=== PATIENT | female | born 1975 | race Caucasian/White ===

== ENCOUNTER 2017-02-26 21:21 | Inpatient (IN) | payer OTHER ==
[~2017-02-26] VITALS: Ht 165.1 cm; Wt 118.4 kg
--- NOTE | ~2017-02-26 | ST ---
[place], [place] EXERCISE STRESS TEST REPORT NAME: GERALDINE LAYNE [facility] #: [id number] UNIT #: [id number] ROOM: 510 DOCTOR: FREYA NI,NUBIA BIRTHDATE: [birth year] DOS: 02/27/2017 EXERCISE STRESS TEST REASON FOR TEST: Evaluation of chest pain. PHYSICAL EXAMINATION NECK: Supple. LUNGS: Clear anteriorly. HEART: Regular rhythm. PROTOCOL: Jim protocol. Total stress time 3 minutes. Maximum heart rate of 155, which 85% of target heart rate. Peak blood pressure 140/84, adequate response. Total mets 4.7 mets. SYMPTOMS: The patient had chest pain at rest about 3 on a scale of 10, which slightly became worse to 4 or 5 during her treadmill stress test. The patient noted to have some shortness of breath. EKG: Resting EKG shows sinus rhythm. Stress EKG showed no ischemia, no arrhythmias. CONCLUSION: Clinically, the patient had chest pain at rest, which was slightly worse on treadmill and EKG showed no ischemic changes. POST-STRESS COMPLICATIONS: None. NUBIA PILLAI MD CM:STRESS:EXERCISE STRESS TEST REPORT [id number] NUBIA PILLAI MD
--- NOTE | ~2017-02-26 | CON ---
[place], [place] REPORT OF CONSULTATION NAME: [id number] UNIT #: [id number] ROOM: 510 DOCTOR: NUBIA PILLAI MD BIRTHDATE: [birth year] DATE: 02/27/17 REASON FOR CONSULTATION: Chest pain. HISTORY OF PRESENT ILLNESS: The patient is a 41-year-old patient who was presented to the Emergency Room with chest pain. She described it as a sharp midsternal pain as well as left-sided pain mostly at rest. No associated nausea, diaphoresis, or shortness of breath. The pain radiated to her left clavicle area as well as left ankle area. Occasionally, this associated some shortness of breath. Her pain gets worse at rest, but not with any activity or movement. She tried ibuprofen at home without help. She came to the Emergency Room and was admitted to the hospital and Cardiology consult for further testing. She has history of pericardial cyst, which was drained about 5 ago. The patient denies any fever or chills. No cough, no hemoptysis, no edema, no orthopnea. No blurred vision or double vision. She did have occasional headaches. No hematuria, dysuria. No joint tenderness or swelling. REVIEW OF SYSTEMS: Review of the 8 systems negative except as mentioned above. PAST MEDICAL HISTORY: 1. Hypertension. 2. History of pericardial cyst. 3. Thyroid nodules. 4. Acid reflux. 5. Peptic ulcer disease. 6. Depression. 7. Bipolar disorder. PAST SURGICAL HISTORY: 1. History of pericardial cyst drainage. 2. . 3. Cholecystectomy. 4. Hysterectomy. SOCIAL HISTORY: The patient does smoke 1 pack a day and also uses occasional marijuana and also drinks occasionally. FAMILY HISTORY: Father had leukemia. Coronary artery disease with premature heart attacks. Currently living. Mother has hypertension, lung disease. She at age of 56 from colon cancer. ALLERGIES: The patient is allergic to BACTRIM. HOME MEDICATIONS: Reviewed. PHYSICAL EXAMINATION: VITAL SIGNS: Blood pressure 120/80, pulse 59, respiratory rate 18. GENERAL: Alert, comfortable, in no acute distress. HEENT: Pupils are round, equal. No jaundice. NECK: Supple, no distended neck veins, no carotid bruits. CHEST: Symmetrical, nontender. [place], [place] REPORT OF CONSULTATION NAME: GERALDINE LAYNE UNIT #: [id number] ROOM: 510 DOCTOR: NUBIA PILLAI MD BIRTHDATE: [birth year] LUNGS: Few scattered rhonchi, but good air entry bilaterally. HEART: Regular rhythm, no S3, no palpable thrills. ABDOMEN: Benign, nontender, positive bowel sounds. EXTREMITIES: Showed no edema. Distal pulses are palpable. SKIN: Warm and dry. No cyanosis, no clubbing. NEUROLOGIC: The patient is alert, oriented. No focal neurologic deficit. RECTAL: Deferred. GENITOURINARY: Deferred. Rhythm strip, labs, medications reviewed. EKG shows sinus rhythm with no acute ST-T changes. IMPRESSION: 1. Chest pain, atypical, myocardial infarction ruled out. 2. History of pericardial cyst, status post drainage. 3. Obesity. 4. Acid reflux. 5. Anxiety and depression. RECOMMENDATIONS: Exercise nuclear stress test today for evaluation of chest pains. Continue current medication. I would consider repeating her 2D echo for followup of her pericardial cyst. Risk factor modification discussed. Further recommendations based on her above testing and her symptoms. NUBIA PILLAI MD CM:CONSTR:REPORT OF CONSULTATION 30 03/03/17 1425 TAYLER MACARIO MIS.R
[~2017-02-26 21:21] MED LIST: ABILIFY15 MG PO; ADDERAL PO; ADDERALL10 MG PO; AMOXICILLIN500 M3 PO; ATARAX,VISTARIL50 MG PO; BACTRIM DS 8001 TA1 PO; BUSPAR15 MG PO; CARAFATE1 G1 PO; CELEBREX100 MG PO; CELEBREX50 MG PO; CIPRO250 MG PO; CLARITIN10 MG PO; COMBIVENT1 ARO IH; DICLOFENAC POTA50 MG PO; DIFLUCAN150 MG PO; EC NAPROSYN500 MG PO; EES400 MG PO; FIORICET 325 MG1 TAB PO; FLAGYL500 MG PO; FLEXERIL10 MG PO; FLEXERIL5 MG PO; FLOVENT 220 M220 MCG INH; HYDROCHLOROTHIA25 M1 PO; HYDROCODONE BIT1 T11 PO; IBU-8800 MG PO; IBU800 M1 PO; IBUPROFEN600 MG PO; LAMICTAL200 MG PO; LOMOTIL 0.025 M1 TAB PO; MEDROL DOSEPAK4 MG PO; MINIPRESS5 M1 PO; MOTRIN800 MG PO; MYLICON, MYLANT80 MG PO; Motrin,Rufen800 MG PO; NAPROSYN500 MG PO; PEPCID20 MG PO; PERCOCET 325 MG1 TA5 PO; PREDNICOT20 MG PO; PREDNISONE20 M1 PO; PRILOSEC OTC20 MG PO; PROMETRIUM100 MG PO; PROTONIX40 MG PO; Percocet 325 MG1 TAB PO; ROBITUSSIN AC 110 ML PO; TOPAMAX2 MG PO; TOPAMAX25 M1 PO; TRAZODONE50 MG PO; VALIUM10 MG PO; VICODIN 5-3001 EACH PO; VICODIN 5/500 505 MG PO; VISTARIL25 M1 PO; Vicodin 5/500 505 MG PO; ZANAFLEX2 M1 PO; ZANTAC150 MG PO; ZOFRAN ODT4 MG PO; ZOFRAN ODT4 MG SL; ZOFRAN8 MG PO; [UNRECOGNIZED DRUG - CODE] SC
[2017-02-26 21:25] VITALS: BP 144/90
[2017-02-26 21:43] LABS: BASO % 0.4 % (0.0-1.0); EOS # 0.2 10*3/uL (0.0-0.4); EOS % 1.9 % (1.0-4.0); HEMATOCRIT 42.4 % (37.0-47.0); HEMOGLOBIN 14.2 g/dl (12.0-16.0); LYMPH # 2.7 10*3/uL (1.3-4.4); MEAN CELL VOLUME 86.4 fl (81.0-99.0); MEAN CORPUSCULAR HGB 28.9 pg (27.0-31.0); MEAN CORPUSCULAR HGB CONC 33.5 g/dl (33.0-37.0); MEAN PLATELET VOLUME 9.8 fl (9.6-12.3); MONO # 0.7 10*3/uL (0.1-1.0); MONO % 8.5 % (3.0-9.0); NEUT # 4.5 10*3/uL (2.3-7.9); NEUT % 55.7 % (47.0-73.0); PLATELET COUNT AUTOMATED 277 10*3/uL (130-400); RED BLOOD COUNT 4.91 10*6/uL (4.10-5.10); RED CELL DISTRI WIDTH 14.1 % (0-14.5); WHITE BLOOD COUNT 8.1 10*3/uL (4.8-10.8)
[2017-02-26 21:51] LABS: INTERNATIONAL NORM RATIO 0.9 (2.0-3.5)
[2017-02-26 22:00] LABS: ALBUMIN 3.6 gm/dl (3.1-4.5); ALKALINE PHOSPHATASE 88 U/L (45-117); BILIRUBIN, TOTAL 0.2 mg/dl (0.2-1.0); BUN 14 mg/dl (7-24); CARBON DIOXIDE 26 mmol/L (21-32); CHLORIDE 107 mmol/L (98-107); EST GLOM FILT AFRICAN AMERICAN > 60 ml/min; GLUCOSE 96 mg/dL (65-99); SGOT/AST 11 IU/L (3-35); SGPT/ALT 18 U/L (12-78); SODIUM 145 mmol/L (136-145); TOTAL PROTEIN 7.1 gm/dL (6.4-8.2)
[2017-02-26 22:03] LABS: TROPONIN I < 0.015 ng/ml (<0.045)
[2017-02-26 22:04] VITALS: BP 142/83
[2017-02-26] MEDS ORDERED: FLONASE ALLERG9.9 ML NAS (22:27)
[2017-02-26] MEDS ORDERED: ZYRTEC10 MG PO (22:29)
[2017-02-26] MEDS ORDERED: ASMANEX TW0.22 MG/AC INH (22:29)
[2017-02-26 22:30] VITALS: BP 150/97
[2017-02-26] MEDS ORDERED: CYCLOBENZAPRINE10 MG PO (22:30)
[2017-02-26] MEDS ORDERED: PROTONIX40 MG PO (22:30)
[2017-02-26] MEDS ORDERED: TRAZODONE100 MG PO (22:31)
[2017-02-26] MEDS ORDERED: LAMICTAL150 MG PO (22:31)
[2017-02-26] MEDS ORDERED: REXULTI3 MG PO (22:31)
[2017-02-26] MEDS ORDERED: MINIPRESS5 M1 PO (22:32)
[2017-02-26] MEDS ORDERED: BUSPAR15 MG PO (22:32)
[2017-02-26] MEDS ORDERED: TOPAMAX25 M3 PO (22:33)
[2017-02-26] MEDS ORDERED: VENTOLIN H0.09 MG/AC INH (22:33)
[2017-02-27] VITALS: BP 138/84
[2017-02-27 00:46] LABS: CKMB < 0.5 ng/ml (0.5-3.6); TROPONIN I < 0.015 ng/ml (<0.045)
[2017-02-27 06:21] LABS: BASO % 0.5 % (0.0-1.0); EOS # 0.2 10*3/uL (0.0-0.4); EOS % 2.6 % (1.0-4.0); HEMATOCRIT 40.5 % (37.0-47.0); HEMOGLOBIN 13.2 g/dl (12.0-16.0); LYMPH # 2.6 10*3/uL (1.3-4.4); MEAN CORPUSCULAR HGB 28.7 pg (27.0-31.0); MEAN CORPUSCULAR HGB CONC 32.6 g/dl (33.0-37.0); MEAN PLATELET VOLUME 10.2 fl (9.6-12.3); MONO # 0.5 10*3/uL (0.1-1.0); MONO % 6.8 % (3.0-9.0); NEUT # 3.3 10*3/uL (2.3-7.9); NEUT % 49.8 % (47.0-73.0); PLATELET COUNT AUTOMATED 269 10*3/uL (130-400); RED CELL DISTRI WIDTH 14.4 % (0-14.5); WHITE BLOOD COUNT 6.6 10*3/uL (4.8-10.8)
[2017-02-27 06:30] LABS: HEMOGLOBIN A1c 5.1 % (4.8-5.6)
[2017-02-27 06:39] LABS: CKMB < 0.5 ng/ml (0.5-3.6); TROPONIN I < 0.015 ng/ml (<0.045)
[2017-02-27 06:41] LABS: BUN 15 mg/dl (7-24); CARBON DIOXIDE 25 mmol/L (21-32); CHOLESTEROL 140 mg/dL (<200); EST GLOM FILT AFRICAN AMERICAN > 60 ml/min; FREE T4 1.19 ng/dl (0.76-1.46); GLUCOSE 86 mg/dL (65-99); HDL CHOLESTEROL 68 mg/dl (40-60); LDL CHOLESTEROL 63 mg/dL (9-159); MAGNESIUM 2.1 mg/dL (1.5-2.1); PHOSPHOROUS 4.4 mg/dL (2.5-4.9); TRIGLYCERIDES 44 mg/dl (<150); VLDL CHOLESTEROL 9 mg/dL (6-40)
[2017-02-27 06:44] LABS: CHLORIDE 108 mmol/L (98-107); POTASSIUM 3.9 mmol/L (3.5-5.1); SODIUM 144 mmol/L (136-145)
[2017-02-27 08:00] VITALS: BP 114/50
[2017-02-27 12:00] VITALS: BP 114/65
[2017-02-27 12:32] LABS: CKMB < 0.5 ng/ml (0.5-3.6); TROPONIN I < 0.015 ng/ml (<0.045)
[2017-02-27 16:00] VITALS: BP 112/62
[2017-02-27 20:40] VITALS: BP 107/47
[2017-02-28] VITALS: BP 97/52
[2017-02-28 08:00] VITALS: BP 130/68
[2017-02-28 12:00] VITALS: BP 110/58
== END 2017-02-28 14:45 | disposition home or self-care (01) | DRG 313 ==
LOC: ED 21:21 → EDHOLD 22:37 → 5E 22:37
PROVIDERS: Emergency Medicine Emergency Medical Services; Internal Medicine
PROC: 4A02XM4 Measurement of Cardiac Total Activity, External Approach (ICD-10-PCS; principal; 2017-02-27)
DX: R07.89 Other chest pain (principal); Z68.41 Body mass index [BMI] 40.0-44.9, adult; I10 Essential (primary) hypertension; E66.01 Morbid (severe) obesity due to excess calories; F31.9 Bipolar disorder, unspecified; K21.9 Gastro-esophageal reflux disease without esophagitis; G25.81 Restless legs syndrome; R06.82 Tachypnea, not elsewhere classified; F17.210 Nicotine dependence, cigarettes, uncomplicated; G43.909 Migraine, unspecified, not intractable, without status migrainosus; Z90.710 Acquired absence of both cervix and uterus; Z90.49 Acquired absence of other specified parts of digestive tract; Z98.891 History of uterine scar from previous surgery; Z82.49 Family history of ischemic heart disease and other diseases of the circulatory system; Z80.0 Family history of malignant neoplasm of digestive organs; Z83.6 Family history of other diseases of the respiratory system; Z79.899 Other long term (current) drug therapy; Z88.2 Allergy status to sulfonamides; Z88.8 Allergy status to other drugs, medicaments and biological substances

== ENCOUNTER 2017-08-15 20:13 | Emergency (ER) | payer OTHER ==
[~2017-08-15] VITALS: Ht 165.1 cm; Wt 136.1 kg
[~2017-08-15 20:13] MED LIST changes: +ASMANEX TW0.22 MG/AC INH; +CYCLOBENZAPRINE10 MG PO; +FLONASE ALLERG9.9 ML NAS; +LAMICTAL150 MG PO; +REXULTI3 MG PO; +TOPAMAX25 M3 PO; +TRAZODONE100 MG PO; +VENTOLIN H0.09 MG/AC INH; +ZYRTEC10 MG PO
[2017-08-15 20:54] VITALS: BP 119/66
[2017-08-15 21:45] LABS: BASO % 0.4 % (0.0-1.0); EOS # 0.3 10*3/uL (0.0-0.4); EOS % 3.5 % (1.0-4.0); HEMATOCRIT 41.5 % (37.0-47.0); HEMOGLOBIN 13.3 g/dl (12.0-16.0); LYMPH # 2.2 10*3/uL (1.3-4.4); LYMPH % 28.9 % (27.0-41.0); MEAN CELL VOLUME 88.5 fl (81.0-99.0); MEAN CORPUSCULAR HGB 28.4 pg (27.0-31.0); MEAN PLATELET VOLUME 9.5 fl (9.6-12.3); MONO # 0.7 10*3/uL (0.1-1.0); NEUT # 4.3 10*3/uL (2.3-7.9); NEUT % 57.9 % (47.0-73.0); PLATELET COUNT AUTOMATED 268 10*3/uL (130-400); RED BLOOD COUNT 4.69 10*6/uL (4.10-5.10); WHITE BLOOD COUNT 7.4 10*3/uL (4.8-10.8)
[2017-08-15 22:00] LABS: ALBUMIN 3.6 gm/dl (3.1-4.5); ALKALINE PHOSPHATASE 114 U/L (45-117); BUN 11 mg/dl (7-24); CHLORIDE 108 mmol/L (98-107); CREATININE 0.96 mg/dL (0.55-1.02); POTASSIUM 3.8 mmol/L (3.5-5.1); SGOT/AST 70 IU/L (3-35); SGPT/ALT 91 U/L (12-78); SODIUM 140 mmol/L (136-145); TOTAL PROTEIN 7.1 gm/dL (6.4-8.2)
[2017-08-15 22:06] LABS: BILIRUBIN NEGATIVE (NEGATIVE); BLOOD NEGATIVE (NEGATIVE); CLARITY CLEAR (CLEAR); COLOR YELLOW (YELLOW); GLUCOSE NEGATIVE (NEGATIVE); KETONE NEGATIVE (NEGATIVE); LEUKO ESTERASE NEGATIVE (NEGATIVE); NITRITE NEGATIVE (NEGATIVE); SPECIFIC GRAVITY <= 1.005 (1.005-1.030)
[2017-08-15 22:16] LABS: BACTERIA TRACE; RBC 0-2 rbc/hpf (0-2); WBC 0-2 wbc/hpf (0-5)
== END 2017-08-15 22:44 | disposition home or self-care (01) ==
LOC: ED 20:13
PROVIDERS: Nurse Practitioner Family
DX: R60.0 Localized edema (principal); R51 Headache; F12.10 Cannabis abuse, uncomplicated; F17.200 Nicotine dependence, unspecified, uncomplicated; J45.909 Unspecified asthma, uncomplicated; Z98.890 Other specified postprocedural states; Z90.49 Acquired absence of other specified parts of digestive tract; Z90.710 Acquired absence of both cervix and uterus; Z88.8 Allergy status to other drugs, medicaments and biological substances; Z88.1 Allergy status to other antibiotic agents; Z79.899 Other long term (current) drug therapy; Z98.51 Tubal ligation status

== ENCOUNTER 2017-10-21 18:28 | Emergency (ER) | payer OTHER ==
[~2017-10-21] VITALS: Wt 90.7 kg
[2017-10-21 18:52] VITALS: BP 112/49
[2017-10-21] MEDS ORDERED: TESSALON PERLE100 MG PO (20:28)
[2017-10-21] MEDS ORDERED: AUGMENTIN 875875 MG PO (20:28)
== END 2017-10-21 20:35 | disposition home or self-care (01) ==
LOC: ED 18:28
DX: J32.9 Chronic sinusitis, unspecified (principal); J20.9 Acute bronchitis, unspecified; F10.10 Alcohol abuse, uncomplicated; F41.9 Anxiety disorder, unspecified; F32.9 Major depressive disorder, single episode, unspecified; K21.9 Gastro-esophageal reflux disease without esophagitis; I10 Essential (primary) hypertension; Z88.2 Allergy status to sulfonamides; Z88.8 Allergy status to other drugs, medicaments and biological substances; Z79.899 Other long term (current) drug therapy; Z90.49 Acquired absence of other specified parts of digestive tract; Z90.710 Acquired absence of both cervix and uterus; Z98.51 Tubal ligation status

== ENCOUNTER 2017-11-06 18:42 | Emergency (ER) | payer OTHER ==
[~2017-11-06] VITALS: Ht 165.1 cm; Wt 97.5 kg
[~2017-11-06 18:42] MED LIST changes: +AUGMENTIN 875875 MG PO; +TESSALON PERLE100 MG PO
[2017-11-06 18:58] VITALS: BP 140/83
[2017-11-06] MEDS ORDERED: CYCLOBENZAPRINE10 MG PO (20:24)
[2017-11-06] MEDS ORDERED: MEDROL DOSEPAK4 MG PO (20:24)
== END 2017-11-06 20:40 | disposition home or self-care (01) ==
LOC: ED 18:42
DX: M54.42 Lumbago with sciatica, left side (principal); F17.200 Nicotine dependence, unspecified, uncomplicated; F12.10 Cannabis abuse, uncomplicated; K21.9 Gastro-esophageal reflux disease without esophagitis; I10 Essential (primary) hypertension; E66.9 Obesity, unspecified; Z98.51 Tubal ligation status; Z98.890 Other specified postprocedural states; Z90.49 Acquired absence of other specified parts of digestive tract; Z79.899 Other long term (current) drug therapy; Z88.1 Allergy status to other antibiotic agents; Z88.8 Allergy status to other drugs, medicaments and biological substances

== ENCOUNTER 2017-12-19 17:16 | Emergency (ER) | payer OTHER ==
[~2017-12-19] VITALS: Wt 117.0 kg
[2017-12-19 17:59] LABS: BASO % 0.4 % (0.0-1.0); EOS # 0.2 10*3/uL (0.0-0.4); EOS % 2.5 % (1.0-4.0); HEMATOCRIT 41.3 % (37.0-47.0); HEMOGLOBIN 13.4 g/dl (12.0-16.0); LYMPH # 2.1 10*3/uL (1.3-4.4); LYMPH % 28.1 % (27.0-41.0); MEAN CELL VOLUME 88.4 fl (81.0-99.0); MEAN CORPUSCULAR HGB 28.7 pg (27.0-31.0); MEAN CORPUSCULAR HGB CONC 32.4 g/dl (33.0-37.0); MEAN PLATELET VOLUME 9.7 fl (9.6-12.3); MONO # 0.5 10*3/uL (0.1-1.0); MONO % 5.9 % (3.0-9.0); NEUT # 4.8 10*3/uL (2.3-7.9); NEUT % 62.8 % (47.0-73.0); PLATELET COUNT AUTOMATED 300 10*3/uL (130-400); RED BLOOD COUNT 4.67 10*6/uL (4.10-5.10); RED CELL DISTRI WIDTH 14.2 % (0-14.5); WHITE BLOOD COUNT 7.6 10*3/uL (4.8-10.8)
[2017-12-19 18:09] LABS: ACT PARTIAL THROMBO TIME 24.7 SECONDS (20.8-31.5); INTERNATIONAL NORM RATIO 0.9 (2.0-3.5)
[2017-12-19 18:17] LABS: ALBUMIN 3.7 gm/dl (3.1-4.5); ALKALINE PHOSPHATASE 100 U/L (45-117); BUN 20 mg/dl (7-24); CHLORIDE 106 mmol/L (98-107); POTASSIUM 4.7 mmol/L (3.5-5.1); SGOT/AST 16 IU/L (3-35); SGPT/ALT 22 U/L (12-78); SODIUM 138 mmol/L (136-145); TOTAL PROTEIN 7.3 gm/dL (6.4-8.2)
[2017-12-19 19:58] VITALS: BP 114/60
== END 2017-12-19 20:14 | disposition short-term general hospital (02) ==
LOC: ED 17:16
PROVIDERS: Nurse Practitioner Family
DX: M54.5 Low back pain (principal); G89.29 Other chronic pain; F17.200 Nicotine dependence, unspecified, uncomplicated; I10 Essential (primary) hypertension; K21.9 Gastro-esophageal reflux disease without esophagitis; Z90.49 Acquired absence of other specified parts of digestive tract; Z90.710 Acquired absence of both cervix and uterus; Z88.2 Allergy status to sulfonamides; Z88.1 Allergy status to other antibiotic agents

== ENCOUNTER → 2017-12-26 | Outpatient (CLI) | payer OTHER | END | disposition home or self-care (01) | LOC: MRI 11:00 | DX: M51.26 Other intervertebral disc displacement, lumbar region (principal); M48.061 Spinal stenosis, lumbar region without neurogenic claudication ==

== ENCOUNTER 2018-05-23 14:18 | Emergency (ER) | payer OTHER ==
[~2018-05-23] VITALS: Ht 165.1 cm; Wt 117.0 kg
[2018-05-23 14:20] VITALS: BP 123/57
[2018-05-23] MEDS ORDERED: DELTASONE20 M1 PO (16:00)
[2018-05-23] MEDS ORDERED: Motrin,Rufen800 MG PO (16:00)
== END 2018-05-23 16:06 | disposition home or self-care (01) ==
LOC: ED 14:18
DX: M54.16 Radiculopathy, lumbar region (principal); F17.200 Nicotine dependence, unspecified, uncomplicated; Z88.1 Allergy status to other antibiotic agents; Z79.899 Other long term (current) drug therapy

== ENCOUNTER 2018-05-29 00:14 | Emergency (ER) | payer OTHER ==
[~2018-05-29] VITALS: Ht 165.1 cm; Wt 113.4 kg
[~2018-05-29 00:14] MED LIST changes: +DELTASONE20 M1 PO
[2018-05-29 00:15] VITALS: BP 155/53
== END 2018-05-29 01:36 | disposition home or self-care (01) ==
LOC: ED 00:14
DX: G89.29 Other chronic pain (principal); M54.16 Radiculopathy, lumbar region; F17.200 Nicotine dependence, unspecified, uncomplicated; F12.10 Cannabis abuse, uncomplicated; Z88.2 Allergy status to sulfonamides; Z79.899 Other long term (current) drug therapy; Z90.49 Acquired absence of other specified parts of digestive tract; Z90.710 Acquired absence of both cervix and uterus; Z98.51 Tubal ligation status

== ENCOUNTER 2018-10-28 11:20 | Inpatient (IN) | payer OTHER ==
[~2018-10-28] VITALS: Ht 165.1 cm; Wt 115.0 kg
--- NOTE | ~2018-10-28 | EKG ---
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
--- NOTE | ~2018-10-28 | EKG ---
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
--- NOTE | ~2018-10-28 | EKG ---
[place], [place] ELECTROCARDIOGRAM REPORT NAME: GERALDINE LAYNE UNIT #: [id number] ROOM: 504 DOCTOR: KIM DRAFT REPORT BIRTHDATE: [birth year] [facility] Test Date: 2018-10-28 Test Time: 17:14:53 Pat Name: GERLADINE LAYNE Department: Room: 504 Gender: F Ehs Specialist: NANDINI : 1975 Requested By: GUERLIEN ADDISON Order Number: [id number] Reading MD: Dg Strong MD Measurements Intervals [place] Rate: 69 P: 51 CA: 149 QRS: 27 QRSD: 80 T: 19 QT: 376 QTc: 403 Interpretive Statements Sinus rhythm No change from earlier ECG this date Electronically Signed On 10-28-2018 18:30:17 PST by Dg Strong MD CM:EKGRPT:ELECTROCARDIOGRAM REPORT 1714 1830 GUERLINE GUTIERREZ DRAFT REPORT GUERLINE ADDISON DO
--- NOTE | ~2018-10-28 | CON ---
[place], [place] REPORT OF CONSULTATION NAME: GERALDINE LAYNE [facility] #: [id number] UNIT #: [id number] ROOM: 504 DOCTOR: CHANTEL NIMARAL BIRTHDATE: [birth year] DOS: 10/28/2018 HISTORY OF PRESENT ILLNESS: The patient is a 43-year-old female apparently who was recently here a week ago. The patient at that time had a CT scan, which had showed a pericardial cyst. She does have a history of pericardial cyst drainage about 8 years ago. The patient had an echocardiogram done a week ago, which showed an excellent ejection fraction. No obvious pericardial cysts were noticed. The patient was readmitted. I was asked for a second opinion. She had some atypical chest pain and complains of some numbness and tingling. No acute EKG changes, suggestion of myocardial injury or infarction. PAST MEDICAL HISTORY: Significant for bronchial asthma, chronic pain, cocaine abuse, dependent edema, gastroesophageal reflux disease, marijuana abuse, thyroid nodule, pericardial cyst. PAST SURGICAL HISTORY: section, cholecystectomy, hysterectomy. SOCIAL HISTORY: As mentioned. FAMILY HISTORY: Positive for coronary artery disease. HOME MEDICATIONS: Include gabapentin, Lasix, multivitamins, oxycodone, prednisone. REVIEW OF SYSTEMS: CONSTITUTIONAL: No fever, no chills. HEENT: No visual disturbances, hearing problems. CARDIOVASCULAR: As per HPI. RESPIRATORY: Denies any shortness of breath. GASTROINTESTINAL: No nausea, no vomiting. GENITOURINARY: No dysuria. PHYSICAL EXAMINATION: VITAL SIGNS: Blood pressure is 104/60. HEENT: Unremarkable. NECK: Supple, no JVD. LUNGS: Diminished breath sounds. HEART: Sounds are regular. No murmur. ABDOMEN: Soft, nontender. NEUROLOGICAL: Stable. LABORATORY DATA: Sodium 141, potassium 3.6, creatinine is 0.9. Liver functions are normal. Troponins have been negative. BNP is normal. Echo reviewed showed an excellent ejection fraction. RECOMMENDATIONS: The patient with atypical chest discomfort, but the ejection fraction is excellent and if continues to have symptoms, can do an outpatient regular treadmill stress test. Pericardial cyst as seen by CT scan but echo did not reveal it, would strongly recommend to get a cardiac MRI as an outpatient. Continue with other medications as ordered and we will follow up and thank you [place], [place] REPORT OF CONSULTATION NAME: GERALDINE LAYNE UNIT #: [id number] ROOM: 504 DOCTOR: CHANTEL NI,MARAL BIRTHDATE: [birth year] for this interesting consultation. MARAL GOLDEN MD CM:CONSTR:REPORT OF CONSULTATION 1644 10/29/18 0357 interface
[~2018-10-28 11:20] MED LIST changes: +AMPHETAMINE SAL15 M1 PO; +FUROSEMIDE20 M1 PO; +GABAPENTIN600 MG PO; +MIRTAZAPINE30 M2 PO; +MULTIVITAMINS1 EAC6 PO; +NICODERM CQ1 EAC2 TD; +PERCOCET 7.5-31 EACH PO; +POTASSIUM CHLO10 ME4 PO; +PREDNISONE10 MG PO; +PROAIR HFA8.5 GM INH; -VENTOLIN H0.09 MG/AC INH; +VITAMIN D5000 UNI1 PO
[2018-10-28 11:22] VITALS: BP 109/64
[2018-10-28 11:41] LABS: BASO % 0.2 % (0.0-1.0); EOS # 0.1 10*3/uL (0.0-0.4); EOS % 0.7 % (1.0-4.0); HEMATOCRIT 44.9 % (37.0-47.0); HEMOGLOBIN 14.4 g/dl (12.0-16.0); LYMPH # 3.6 10*3/uL (1.3-4.4); LYMPH % 23.1 % (27.0-41.0); MEAN CELL VOLUME 90.7 fl (81.0-99.0); MEAN CORPUSCULAR HGB 29.1 pg (27.0-31.0); MEAN CORPUSCULAR HGB CONC 32.1 g/dl (33.0-37.0); MONO # 1.2 10*3/uL (0.1-1.0); MONO % 7.6 % (3.0-9.0); NEUT # 10.4 10*3/uL (2.3-7.9); NEUT % 67.7 % (47.0-73.0); PLATELET COUNT AUTOMATED 285 10*3/uL (130-400); RED BLOOD COUNT 4.95 10*6/uL (4.10-5.10); RED CELL DISTRI WIDTH 13.5 % (0-14.5); WHITE BLOOD COUNT 15.3 10*3/uL (4.8-10.8)
[2018-10-28 11:49] LABS: ACT PARTIAL THROMBO TIME 19.9 SECONDS (20.8-31.5); INTERNATIONAL NORM RATIO 0.9 (2.0-3.5)
[2018-10-28 11:55] VITALS: BP 115/68
[2018-10-28 11:59] LABS: ALBUMIN 3.6 gm/dl (3.1-4.5); ALKALINE PHOSPHATASE 90 U/L (45-117); BUN 23 mg/dl (7-24); CHLORIDE 107 mmol/L (98-107); CREATININE 0.94 mg/dL (0.55-1.02); LIPASE 120 U/L (73-393); POTASSIUM 3.6 mmol/L (3.5-5.1); SGOT/AST 8 IU/L (3-35); SGPT/ALT 32 U/L (12-78); SODIUM 141 mmol/L (136-145); TOTAL PROTEIN 7.2 gm/dL (6.4-8.2)
[2018-10-28 12:03] LABS: BETA-HCG, QUANT < 1.0 mIU/mL (1-3); TROPONIN I < 0.015 ng/ml (<0.045)
[2018-10-28 13:06] VITALS: BP 104/63
[2018-10-28 14:06] VITALS: BP 119/76
[2018-10-28 16:00] VITALS: BP 111/64
[2018-10-28 20:00] VITALS: BP 108/60
[2018-10-29] VITALS: BP 103/53
[2018-10-29 06:36] VITALS: BP 110/64
[2018-10-29 06:36] LABS: BASO % 0.1 % (0.0-1.0); EOS % 0.2 % (1.0-4.0); HEMATOCRIT 41.7 % (37.0-47.0); HEMOGLOBIN 13.6 g/dl (12.0-16.0); LYMPH # 2.1 10*3/uL (1.3-4.4); LYMPH % 20.6 % (27.0-41.0); MEAN CELL VOLUME 89.9 fl (81.0-99.0); MEAN CORPUSCULAR HGB 29.3 pg (27.0-31.0); MEAN CORPUSCULAR HGB CONC 32.6 g/dl (33.0-37.0); MEAN PLATELET VOLUME 10.2 fl (9.6-12.3); MONO # 0.6 10*3/uL (0.1-1.0); MONO % 6.2 % (3.0-9.0); NEUT # 7.4 10*3/uL (2.3-7.9); NEUT % 72.1 % (47.0-73.0); PLATELET COUNT AUTOMATED 286 10*3/uL (130-400); RED BLOOD COUNT 4.64 10*6/uL (4.10-5.10); RED CELL DISTRI WIDTH 13.4 % (0-14.5); WHITE BLOOD COUNT 10.2 10*3/uL (4.8-10.8)
[2018-10-29 06:42] LABS: ACT PARTIAL THROMBO TIME 20.8 SECONDS (20.8-31.5); INTERNATIONAL NORM RATIO 0.9 (2.0-3.5)
[2018-10-29 06:44] LABS: ALKALINE PHOSPHATASE 78 U/L (45-117); BUN 20 mg/dl (7-24); CHLORIDE 106 mmol/L (98-107); CREATININE 0.75 mg/dL (0.55-1.02); POTASSIUM 3.9 mmol/L (3.5-5.1); SGOT/AST 8 IU/L (3-35); SGPT/ALT 27 U/L (12-78); SODIUM 138 mmol/L (136-145); TOTAL PROTEIN 6.5 gm/dL (6.4-8.2)
[2018-10-29 08:00] VITALS: BP 116/60
[2018-10-29 08:15] VITALS: BP 106/56
== END 2018-10-29 11:24 | disposition home or self-care (01) | DRG 206 ==
LOC: ED 11:20 → 5E 12:48 → EDHOLD 12:48 → 5E 13:16
PROVIDERS: Emergency Medicine; Family Medicine
DX: M94.0 Chondrocostal junction syndrome [Tietze] (principal); K21.9 Gastro-esophageal reflux disease without esophagitis; I31.8 Other specified diseases of pericardium; R55 Syncope and collapse; D72.829 Elevated white blood cell count, unspecified; R79.82 Elevated C-reactive protein (CRP); F31.9 Bipolar disorder, unspecified; G25.81 Restless legs syndrome; M51.37 Other intervertebral disc degeneration, lumbosacral region; I10 Essential (primary) hypertension; F12.10 Cannabis abuse, uncomplicated; G89.29 Other chronic pain; M54.32 Sciatica, left side; M54.16 Radiculopathy, lumbar region; E66.01 Morbid (severe) obesity due to excess calories; G47.00 Insomnia, unspecified; E55.9 Vitamin D deficiency, unspecified; J45.909 Unspecified asthma, uncomplicated; F41.1 Generalized anxiety disorder; Z91.09 Other allergy status, other than to drugs and biological substances; Z98.891 History of uterine scar from previous surgery; Z90.49 Acquired absence of other specified parts of digestive tract; Z90.710 Acquired absence of both cervix and uterus; Z82.49 Family history of ischemic heart disease and other diseases of the circulatory system; Z80.6 Family history of leukemia; Z80.0 Family history of malignant neoplasm of digestive organs; Z88.1 Allergy status to other antibiotic agents; Z79.899 Other long term (current) drug therapy

== ENCOUNTER 2018-12-27 21:12 | Emergency (ER) | payer OTHER ==
[~2018-12-27] VITALS: Ht 165.1 cm; Wt 111.1 kg
[2018-12-27 22:59] LABS: BILIRUBIN NEGATIVE (NEGATIVE); BLOOD NEGATIVE (NEGATIVE); CLARITY SL CLOUDY (CLEAR); COLOR YELLOW (YELLOW); GLUCOSE NEGATIVE (NEGATIVE); KETONE NEGATIVE (NEGATIVE); LEUKO ESTERASE NEGATIVE (NEGATIVE); NITRITE NEGATIVE (NEGATIVE); UROBILINOGEN 0.2 E.U./dl (0.2-1.0)
[2018-12-27 23:06] LABS: BACTERIA 3+; EPITHELIAL CELLS 40-45
[2018-12-28 02:48] VITALS: BP 125/61
[2019-05-10] MEDS ORDERED: MAPAP EXTRA ST500 M1 PO (05:59)
[2019-05-10] MEDS ORDERED: ADDERALL15 MG PO (06:00)
[2019-05-10] MEDS ORDERED: ARNUITY ELLIP100 MCG INH (06:02)
[2019-05-10] MEDS ORDERED: ATIVAN1 MG PO (06:04)
[2019-05-10] MEDS ORDERED: URECHOLINE10 MG PO (06:05)
[2019-05-10] MEDS ORDERED: CYMBALTA30 MG PO (06:06)
[2019-05-10] MEDS ORDERED: Lovenox40 MG/0.4 PO (06:10)
[2019-05-10] MEDS ORDERED: LIDODERM1 EACH T (06:10)
[2019-05-10] MEDS ORDERED: MINIPRESS5 MG PO (06:11)
[2019-05-10] MEDS ORDERED: MOBIC7.5 MG PO (06:11)
[2019-05-10] MEDS ORDERED: MIRALAX POWDER17 G1 PO (06:12)
[2019-05-10] MEDS ORDERED: OXYCODONE HYDROC5 MG PO (06:13)
[2019-05-10] MEDS ORDERED: PERIDEX118 ML PO (06:15)
[2019-05-10] MEDS ORDERED: ROBAXIN500 M1 PO (06:17)
[2019-05-10] MEDS ORDERED: SALINE NASAL SP88 ML NAS (06:20)
[2019-05-10] MEDS ORDERED: SENNA LAX8.6 M1 PO (06:21)
[2019-05-10] MEDS ORDERED: GAS RELIEF 8080 MG PO (06:22)
[2019-05-10] MEDS ORDERED: TAMSULOSIN HCL0.4 MG PO (06:23)
[2019-05-10] MEDS ORDERED: VOLTAREN100 GM T (06:24)
[2019-05-10] MEDS ORDERED: MEDROL DOSEPAK4 MG PO (06:53)
== END 2018-12-28 04:59 | disposition short-term general hospital (02) ==
LOC: ED 21:12
PROVIDERS: Emergency Medicine
DX: M62.81 Muscle weakness (generalized) (principal); M54.16 Radiculopathy, lumbar region; R29.898 Other symptoms and signs involving the musculoskeletal system; K21.9 Gastro-esophageal reflux disease without esophagitis; I10 Essential (primary) hypertension; J45.909 Unspecified asthma, uncomplicated; E66.01 Morbid (severe) obesity due to excess calories; Z88.2 Allergy status to sulfonamides; Z79.899 Other long term (current) drug therapy; Z87.891 Personal history of nicotine dependence

== ENCOUNTER 2019-03-05 22:12 | Emergency (ER) | payer OTHER ==
[2019-03-06 00:11] LABS: ALBUMIN 3.9 gm/dl (3.1-4.5); ALKALINE PHOSPHATASE 97 U/L (45-117); BUN 16 mg/dl (7-24); CHLORIDE 108 mmol/L (98-107); CREATININE 0.82 mg/dL (0.55-1.02); POTASSIUM 3.9 mmol/L (3.5-5.1); SGOT/AST 21 IU/L (3-35); SGPT/ALT 32 U/L (12-78); SODIUM 141 mmol/L (136-145); TOTAL PROTEIN 7.7 gm/dL (6.4-8.2)
[2019-03-06 01:30] VITALS: BP 150/92
[2019-03-06 02:21] LABS: BILIRUBIN NEGATIVE (NEGATIVE); BLOOD NEGATIVE (NEGATIVE); CLARITY CLEAR (CLEAR); COLOR YELLOW (YELLOW); GLUCOSE NEGATIVE (NEGATIVE); KETONE NEGATIVE (NEGATIVE); LEUKO ESTERASE NEGATIVE (NEGATIVE); NITRITE NEGATIVE (NEGATIVE); PH 5.5 (5.0-9.0); SPECIFIC GRAVITY 1.025 (1.005-1.030); UROBILINOGEN 0.2 E.U./dl (0.2-1.0)
[2019-03-06 02:29] LABS: RBC 0-2 rbc/hpf (0-2); WBC 0-2 wbc/hpf (0-5)
[2019-03-06 02:30] LABS: URINE AMPHETAMINES > 1000 (1000ng/ml); URINE BARBITURATES < 200 (200ng/ml); URINE BENZODIAZEPINES < 200 (200ng/ml); URINE CANNABINOIDS (THC) > 50 (50ng/ml); URINE COCAINE < 300 (300ng/ml); URINE METHADONE < 300 (300ng/ml); URINE OPIATES > 300 (300ng/ml)
[2019-03-06 02:32] LABS: URINE PHENCYCLIDINE < 25 (25ng/ml)
[2019-05-10] MEDS ORDERED: MAPAP EXTRA ST500 M1 PO (05:59)
[2019-05-10] MEDS ORDERED: ADDERALL15 MG PO (06:00)
[2019-05-10] MEDS ORDERED: ARNUITY ELLIP100 MCG INH (06:02)
[2019-05-10] MEDS ORDERED: ATIVAN1 MG PO (06:04)
[2019-05-10] MEDS ORDERED: URECHOLINE10 MG PO (06:05)
[2019-05-10] MEDS ORDERED: CYMBALTA30 MG PO (06:06)
[2019-05-10] MEDS ORDERED: LIDODERM1 EACH T (06:10)
[2019-05-10] MEDS ORDERED: Lovenox40 MG/0.4 PO (06:10)
[2019-05-10] MEDS ORDERED: MINIPRESS5 MG PO (06:11)
[2019-05-10] MEDS ORDERED: MOBIC7.5 MG PO (06:11)
[2019-05-10] MEDS ORDERED: MIRALAX POWDER17 G1 PO (06:12)
[2019-05-10] MEDS ORDERED: OXYCODONE HYDROC5 MG PO (06:13)
[2019-05-10] MEDS ORDERED: PERIDEX118 ML PO (06:15)
[2019-05-10] MEDS ORDERED: ROBAXIN500 M1 PO (06:17)
[2019-05-10] MEDS ORDERED: SALINE NASAL SP88 ML NAS (06:20)
[2019-05-10] MEDS ORDERED: SENNA LAX8.6 M1 PO (06:21)
[2019-05-10] MEDS ORDERED: GAS RELIEF 8080 MG PO (06:22)
[2019-05-10] MEDS ORDERED: TAMSULOSIN HCL0.4 MG PO (06:23)
[2019-05-10] MEDS ORDERED: VOLTAREN100 GM T (06:24)
[2019-05-10] MEDS ORDERED: MEDROL DOSEPAK4 MG PO (06:53)
== END 2019-03-06 03:55 | disposition home or self-care (01) ==
LOC: ED 22:12
PROVIDERS: Emergency Medicine
DX: M48.061 Spinal stenosis, lumbar region without neurogenic claudication (principal); J45.909 Unspecified asthma, uncomplicated; G89.29 Other chronic pain; F14.10 Cocaine abuse, uncomplicated; K21.9 Gastro-esophageal reflux disease without esophagitis; I10 Essential (primary) hypertension; F12.90 Cannabis use, unspecified, uncomplicated; E66.01 Morbid (severe) obesity due to excess calories; F17.200 Nicotine dependence, unspecified, uncomplicated; Z98.890 Other specified postprocedural states; Z90.49 Acquired absence of other specified parts of digestive tract; Z79.899 Other long term (current) drug therapy; Z88.1 Allergy status to other antibiotic agents; Z88.8 Allergy status to other drugs, medicaments and biological substances

== ENCOUNTER 2019-03-06 12:40 | Emergency (ER) | payer OTHER ==
[~2019-03-06] VITALS: Ht 170.1 cm; Wt 122.5 kg
[2019-03-06 13:34] LABS: BILIRUBIN NEGATIVE (NEGATIVE); BLOOD NEGATIVE (NEGATIVE); CLARITY SL CLOUDY (CLEAR); COLOR YELLOW (YELLOW); GLUCOSE NEGATIVE (NEGATIVE); KETONE NEGATIVE (NEGATIVE); LEUKO ESTERASE NEGATIVE (NEGATIVE); NITRITE NEGATIVE (NEGATIVE); UROBILINOGEN 0.2 E.U./dl (0.2-1.0)
[2019-03-06 13:43] LABS: BACTERIA TRACE
[2019-03-06 16:47] VITALS: BP 105/56
[2019-05-10] MEDS ORDERED: MAPAP EXTRA ST500 M1 PO (05:59)
[2019-05-10] MEDS ORDERED: ADDERALL15 MG PO (06:00)
[2019-05-10] MEDS ORDERED: ARNUITY ELLIP100 MCG INH (06:02)
[2019-05-10] MEDS ORDERED: ATIVAN1 MG PO (06:04)
[2019-05-10] MEDS ORDERED: URECHOLINE10 MG PO (06:05)
[2019-05-10] MEDS ORDERED: CYMBALTA30 MG PO (06:06)
[2019-05-10] MEDS ORDERED: Lovenox40 MG/0.4 PO (06:10)
[2019-05-10] MEDS ORDERED: LIDODERM1 EACH T (06:10)
[2019-05-10] MEDS ORDERED: MOBIC7.5 MG PO (06:11)
[2019-05-10] MEDS ORDERED: MINIPRESS5 MG PO (06:11)
[2019-05-10] MEDS ORDERED: MIRALAX POWDER17 G1 PO (06:12)
[2019-05-10] MEDS ORDERED: OXYCODONE HYDROC5 MG PO (06:13)
[2019-05-10] MEDS ORDERED: PERIDEX118 ML PO (06:15)
[2019-05-10] MEDS ORDERED: ROBAXIN500 M1 PO (06:17)
[2019-05-10] MEDS ORDERED: SALINE NASAL SP88 ML NAS (06:20)
[2019-05-10] MEDS ORDERED: SENNA LAX8.6 M1 PO (06:21)
[2019-05-10] MEDS ORDERED: GAS RELIEF 8080 MG PO (06:22)
[2019-05-10] MEDS ORDERED: TAMSULOSIN HCL0.4 MG PO (06:23)
[2019-05-10] MEDS ORDERED: VOLTAREN100 GM T (06:24)
[2019-05-10] MEDS ORDERED: MEDROL DOSEPAK4 MG PO (06:53)
== END 2019-03-06 18:58 | disposition short-term general hospital (02) ==
LOC: ED 12:40
PROVIDERS: Physician Assistant
DX: M54.42 Lumbago with sciatica, left side (principal); M54.41 Lumbago with sciatica, right side; R30.0 Dysuria; Z88.2 Allergy status to sulfonamides; Z79.899 Other long term (current) drug therapy; Z90.710 Acquired absence of both cervix and uterus; Z90.49 Acquired absence of other specified parts of digestive tract; Z87.891 Personal history of nicotine dependence

== ENCOUNTER 2019-04-12 20:48 | Emergency (ER) | payer OTHER ==
[~2019-04-12] VITALS: Ht 167.6 cm; Wt 95.3 kg
[2019-04-12 22:21] LABS: BILIRUBIN NEGATIVE (NEGATIVE); BLOOD 3+ (NEGATIVE); CLARITY SL CLOUDY (CLEAR); COLOR YELLOW (YELLOW); GLUCOSE NEGATIVE (NEGATIVE); KETONE NEGATIVE (NEGATIVE); LEUKO ESTERASE 2+ (NEGATIVE); NITRITE POSITIVE (NEGATIVE); UROBILINOGEN 0.2 E.U./dl (0.2-1.0)
[2019-04-12 23:27] LABS: RBC 31-40 rbc/hpf (0-2)
[2019-04-12 23:28] LABS: BACTERIA 2+; WBC 21-30 wbc/hpf (0-5)
[2019-04-12 23:49] LABS: BASO % 0.4 % (0.0-1.0); EOS # 0.4 10*3/uL (0.0-0.4); EOS % 4.4 % (1.0-4.0); HEMATOCRIT 38.5 % (37.0-47.0); HEMOGLOBIN 12.2 g/dl (12.0-16.0); LYMPH % 37.7 % (27.0-41.0); MEAN CELL VOLUME 92.5 fl (81.0-99.0); MEAN CORPUSCULAR HGB 29.3 pg (27.0-31.0); MEAN CORPUSCULAR HGB CONC 31.7 g/dl (33.0-37.0); MEAN PLATELET VOLUME 9.9 fl (9.6-12.3); MONO # 0.6 10*3/uL (0.1-1.0); NEUT % 49.4 % (47.0-73.0); PLATELET COUNT AUTOMATED 233 10*3/uL (130-400); RED BLOOD COUNT 4.16 10*6/uL (4.10-5.10); RED CELL DISTRI WIDTH 12.9 % (0-14.5)
[2019-04-13 00:05] LABS: ALBUMIN 3.2 gm/dl (3.1-4.5); ALKALINE PHOSPHATASE 83 U/L (45-117); BUN 16 mg/dl (7-24); CHLORIDE 109 mmol/L (98-107); CREATININE 0.83 mg/dL (0.55-1.02); LIPASE 142 U/L (73-393); SGOT/AST 12 IU/L (3-35); SGPT/ALT 20 U/L (12-78); SODIUM 142 mmol/L (136-145); TOTAL PROTEIN 6.5 gm/dL (6.4-8.2)
[2019-04-13 04:58] VITALS: BP 100/50
[2019-05-10] MEDS ORDERED: MAPAP EXTRA ST500 M1 PO (05:59)
[2019-05-10] MEDS ORDERED: ADDERALL15 MG PO (06:00)
[2019-05-10] MEDS ORDERED: ARNUITY ELLIP100 MCG INH (06:02)
[2019-05-10] MEDS ORDERED: ATIVAN1 MG PO (06:04)
[2019-05-10] MEDS ORDERED: URECHOLINE10 MG PO (06:05)
[2019-05-10] MEDS ORDERED: CYMBALTA30 MG PO (06:06)
[2019-05-10] MEDS ORDERED: Lovenox40 MG/0.4 PO (06:10)
[2019-05-10] MEDS ORDERED: LIDODERM1 EACH T (06:10)
[2019-05-10] MEDS ORDERED: MINIPRESS5 MG PO (06:11)
[2019-05-10] MEDS ORDERED: MOBIC7.5 MG PO (06:11)
[2019-05-10] MEDS ORDERED: MIRALAX POWDER17 G1 PO (06:12)
[2019-05-10] MEDS ORDERED: OXYCODONE HYDROC5 MG PO (06:13)
[2019-05-10] MEDS ORDERED: PERIDEX118 ML PO (06:15)
[2019-05-10] MEDS ORDERED: ROBAXIN500 M1 PO (06:17)
[2019-05-10] MEDS ORDERED: SALINE NASAL SP88 ML NAS (06:20)
[2019-05-10] MEDS ORDERED: SENNA LAX8.6 M1 PO (06:21)
[2019-05-10] MEDS ORDERED: GAS RELIEF 8080 MG PO (06:22)
[2019-05-10] MEDS ORDERED: TAMSULOSIN HCL0.4 MG PO (06:23)
[2019-05-10] MEDS ORDERED: VOLTAREN100 GM T (06:24)
[2019-05-10] MEDS ORDERED: MEDROL DOSEPAK4 MG PO (06:53)
[2019-06-28] MEDS ORDERED: MONUROL3 G1 PO (04:28)
== END 2019-04-13 05:42 | disposition home or self-care (01) ==
LOC: ED 20:48
PROVIDERS: Emergency Medicine Emergency Medical Services
DX: R10.30 Lower abdominal pain, unspecified (principal); M54.5 Low back pain; F17.200 Nicotine dependence, unspecified, uncomplicated; J45.909 Unspecified asthma, uncomplicated; G89.29 Other chronic pain; K21.9 Gastro-esophageal reflux disease without esophagitis; E66.01 Morbid (severe) obesity due to excess calories; Z90.49 Acquired absence of other specified parts of digestive tract; Z98.890 Other specified postprocedural states; Z90.710 Acquired absence of both cervix and uterus; Z79.899 Other long term (current) drug therapy; Z88.1 Allergy status to other antibiotic agents; Z88.8 Allergy status to other drugs, medicaments and biological substances

== ENCOUNTER → 2019-04-13 | Outpatient (CLI) | payer OTHER ==
[~2019-04-13] MED LIST changes: +ADDERALL15 MG PO; +ARNUITY ELLIP100 MCG INH; +ATIVAN1 MG PO; +CIPRO500 MG PO; +CYMBALTA30 MG PO; +GAS RELIEF 8080 MG PO; +LIDODERM1 EACH T; +Lovenox40 MG/0.4 PO; +MACROBID100 M1 PO; +MAPAP EXTRA ST500 M1 PO; +MINIPRESS5 MG PO; +MIRALAX POWDER17 G1 PO; +MOBIC7.5 MG PO; +MONUROL3 G1 PO; +OXYCODONE HYDROC5 MG PO; +PERIDEX118 ML PO; +ROBAXIN500 M1 PO; +SALINE NASAL SP88 ML NAS; +SENNA LAX8.6 M1 PO; +TAMSULOSIN HCL0.4 MG PO; +URECHOLINE10 MG PO; +VOLTAREN100 GM T
== END | disposition home or self-care (01) ==
LOC: US 14:59
DX: E04.1 Nontoxic single thyroid nodule (principal)

== ENCOUNTER 2019-07-01 23:15 | Emergency (ER) | payer OTHER ==
[~2019-07-01] VITALS: Ht 165.1 cm; Wt 126.6 kg
--- NOTE | ~2019-07-01 | EKG ---
[place], [place] ELECTROCARDIOGRAM REPORT NAME: GERALDINE LAYNE UNIT #: [id number] ROOM: DOCTOR: EPIPHANY DRAFT REPORT BIRTHDATE: [birth year] [facility] Test Date: 2019-07-01 Test Time: 23:19:56 Pat Name: GERALDINE LAYNE Department: Room: [facility] Gender: F Prevention Rn: : 1975 Requested By: ISIAH LOPEZ Order Number: [id number] Reading MD: Scar Vidal MD Measurements Intervals [place] Rate: 110 P: 73 AK: 153 QRS: 43 QRSD: 86 T: 35 QT: 338 QTc: 458 Interpretive Statements Sinus tachycardia Probable left atrial enlargement Compared to ECG 05/10/2019 05:33:36 Sinus rhythm no longer present Electronically Signed On 07-06-2019 4:01:12 PDT by Scar Vidal MD CM:EKGRPT:ELECTROCARDIOGRAM REPORT 2319 0401 ISIAH LOPEZ MD EPIPHANY DRAFT REPORT ISIAH LOPEZ MD
--- NOTE | ~2019-07-01 | EKG ---
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
[~2019-07-01 23:15] MED LIST changes: -CIPRO500 MG PO; -MACROBID100 M1 PO
[2019-07-01 23:42] LABS: BASO % 0.5 % (0.0-1.0); EOS # 0.2 10*3/uL (0.0-0.4); EOS % 3.2 % (1.0-4.0); HEMATOCRIT 42.2 % (37.0-47.0); HEMOGLOBIN 13.4 g/dl (12.0-16.0); LYMPH # 2.6 10*3/uL (1.3-4.4); LYMPH % 35.4 % (27.0-41.0); MEAN CELL VOLUME 89.6 fl (81.0-99.0); MEAN CORPUSCULAR HGB 28.5 pg (27.0-31.0); MEAN CORPUSCULAR HGB CONC 31.8 g/dl (33.0-37.0); MEAN PLATELET VOLUME 9.7 fl (9.6-12.3); MONO # 0.5 10*3/uL (0.1-1.0); MONO % 6.6 % (3.0-9.0); NEUT % 54.2 % (47.0-73.0); PLATELET COUNT AUTOMATED 299 10*3/uL (130-400); RED BLOOD COUNT 4.71 10*6/uL (4.10-5.10); RED CELL DISTRI WIDTH 13.4 % (0-14.5); WHITE BLOOD COUNT 7.4 10*3/uL (4.8-10.8)
[2019-07-01 23:53] LABS: ACT PARTIAL THROMBO TIME 29.2 SECONDS (20.0-32.1); INTERNATIONAL NORM RATIO 0.9 (2.0-3.5)
[2019-07-02] LABS: ALBUMIN 3.9 gm/dl (3.1-4.5); ALKALINE PHOSPHATASE 123 U/L (45-117); BUN 16 mg/dl (7-24); CHLORIDE 106 mmol/L (98-107); CREATININE 0.91 mg/dL (0.55-1.02); POTASSIUM 3.6 mmol/L (3.5-5.1); SGOT/AST 12 IU/L (3-35); SGPT/ALT 21 U/L (12-78); SODIUM 139 mmol/L (136-145); TOTAL PROTEIN 7.8 gm/dL (6.4-8.2)
[2019-07-02 00:02] LABS: TROPONIN I < 0.015 ng/ml (<0.045)
--- NOTE | 2019-07-02 01:33 | NUR ---
PATIENT RESTING IN BED WITH EYES CLOSED AT THIS TIME, VS STABLE, NO S/S OF DISTRESS NOTED. SIDE RAILS UP X2, CALL LIGHT WITHIN REACH, BED IN LOW. WILL CONTINUE TO MONITOR PATIENT.
[2019-07-02 02:19] VITALS: BP 122/70
[2019-07-02 02:25] VITALS: BP 98/53
[2019-07-02 02:48] VITALS: BP 90/52
--- NOTE | 2019-07-02 02:49 | NUR ---
DR DENG MADE AWARE OF B/P OF . WAS ADVISED TO HOLD DEMEROL 12.5MG. MEDCIATION WASTED AT THIS TIME WITH RN.
== END 2019-07-02 03:01 | disposition other institution (70) ==
LOC: ED 23:15 → EDHOLD 07-02 02:07 → ED 07-02 03:01
PROVIDERS: Emergency Medicine Emergency Medical Services
DX: G43.909 Migraine, unspecified, not intractable, without status migrainosus (principal); R07.9 Chest pain, unspecified; J45.909 Unspecified asthma, uncomplicated; K21.9 Gastro-esophageal reflux disease without esophagitis; I10 Essential (primary) hypertension; E66.01 Morbid (severe) obesity due to excess calories; F17.200 Nicotine dependence, unspecified, uncomplicated; Z88.2 Allergy status to sulfonamides; Z79.899 Other long term (current) drug therapy

== ENCOUNTER 2019-07-06 21:07 | Emergency (ER) | payer OTHER ==
[~2019-07-06] VITALS: Ht 165.1 cm; Wt 126.6 kg
[2019-07-06 21:10] VITALS: BP 108/53
[2019-07-06 21:41] LABS: BASO % 0.4 % (0.0-1.0); EOS # 0.3 10*3/uL (0.0-0.4); EOS % 2.9 % (1.0-4.0); HEMOGLOBIN 12.3 g/dl (12.0-16.0); LYMPH # 2.4 10*3/uL (1.3-4.4); LYMPH % 25.5 % (27.0-41.0); MEAN CELL VOLUME 90.5 fl (81.0-99.0); MEAN CORPUSCULAR HGB 28.5 pg (27.0-31.0); MEAN CORPUSCULAR HGB CONC 31.5 g/dl (33.0-37.0); MEAN PLATELET VOLUME 9.7 fl (9.6-12.3); MONO # 0.8 10*3/uL (0.1-1.0); MONO % 8.2 % (3.0-9.0); NEUT # 5.9 10*3/uL (2.3-7.9); NEUT % 62.7 % (47.0-73.0); PLATELET COUNT AUTOMATED 284 10*3/uL (130-400); RED BLOOD COUNT 4.31 10*6/uL (4.10-5.10); RED CELL DISTRI WIDTH 13.2 % (0-14.5); WHITE BLOOD COUNT 9.4 10*3/uL (4.8-10.8)
[2019-07-06 21:52] LABS: ACT PARTIAL THROMBO TIME 27.2 SECONDS (20.0-32.1); INTERNATIONAL NORM RATIO 0.9 (2.0-3.5)
[2019-07-06 21:57] LABS: ALBUMIN 3.4 gm/dl (3.1-4.5); ALKALINE PHOSPHATASE 105 U/L (45-117); BUN 14 mg/dl (7-24); CHLORIDE 107 mmol/L (98-107); CREATININE 0.79 mg/dL (0.55-1.02); LIPASE 90 U/L (73-393); POTASSIUM 4.2 mmol/L (3.5-5.1); SGOT/AST 11 IU/L (3-35); SGPT/ALT 19 U/L (12-78); SODIUM 140 mmol/L (136-145); TOTAL PROTEIN 6.9 gm/dL (6.4-8.2)
[2019-07-06 22:35] LABS: BILIRUBIN NEGATIVE (NEGATIVE); BLOOD NEGATIVE (NEGATIVE); CLARITY CLEAR (CLEAR); COLOR YELLOW (YELLOW); GLUCOSE NEGATIVE (NEGATIVE); KETONE NEGATIVE (NEGATIVE); LEUKO ESTERASE TRACE (NEGATIVE); NITRITE POSITIVE (NEGATIVE); UROBILINOGEN 0.2 E.U./dl (0.2-1.0)
[2019-07-06 22:46] LABS: TRIP PHOS CRYSTALS 2+
[2019-07-06 22:47] LABS: BACTERIA 1+
[2019-07-06] MEDS ORDERED: MACROBID100 M1 PO (23:54)
[2019-07-07] MEDS ORDERED: CIPRO500 MG PO (21:42)
== END 2019-07-07 00:40 | disposition other institution (70) ==
LOC: ED 21:07
PROVIDERS: Nurse Practitioner Family
DX: N39.0 Urinary tract infection, site not specified (principal); I10 Essential (primary) hypertension; K21.9 Gastro-esophageal reflux disease without esophagitis; E66.01 Morbid (severe) obesity due to excess calories; G89.29 Other chronic pain; J45.909 Unspecified asthma, uncomplicated; G43.909 Migraine, unspecified, not intractable, without status migrainosus; Z88.2 Allergy status to sulfonamides; Z79.899 Other long term (current) drug therapy; Z90.710 Acquired absence of both cervix and uterus; Z90.49 Acquired absence of other specified parts of digestive tract; Z87.891 Personal history of nicotine dependence

== ENCOUNTER 2019-07-07 20:23 | Emergency (ER) | payer OTHER ==
[~2019-07-07] VITALS: Ht 165.1 cm; Wt 126.6 kg
[~2019-07-07 20:23] MED LIST changes: +MACROBID100 M1 PO
[2019-07-07 20:27] VITALS: BP 109/50
[2019-07-07 20:58] LABS: BASO % 0.4 % (0.0-1.0); EOS # 0.3 10*3/uL (0.0-0.4); EOS % 4.6 % (1.0-4.0); HEMATOCRIT 39.7 % (37.0-47.0); HEMOGLOBIN 12.7 g/dl (12.0-16.0); LYMPH # 2.4 10*3/uL (1.3-4.4); LYMPH % 34.7 % (27.0-41.0); MEAN CELL VOLUME 90.6 fl (81.0-99.0); MEAN PLATELET VOLUME 9.7 fl (9.6-12.3); MONO # 0.6 10*3/uL (0.1-1.0); MONO % 9.3 % (3.0-9.0); NEUT # 3.5 10*3/uL (2.3-7.9); NEUT % 50.6 % (47.0-73.0); PLATELET COUNT AUTOMATED 275 10*3/uL (130-400); RED BLOOD COUNT 4.38 10*6/uL (4.10-5.10); RED CELL DISTRI WIDTH 13.1 % (0-14.5); WHITE BLOOD COUNT 6.9 10*3/uL (4.8-10.8)
[2019-07-07 21:13] LABS: ALBUMIN 3.4 gm/dl (3.1-4.5); ALKALINE PHOSPHATASE 106 U/L (45-117); BUN 17 mg/dl (7-24); CHLORIDE 107 mmol/L (98-107); CREATININE 0.86 mg/dL (0.55-1.02); LIPASE 102 U/L (73-393); POTASSIUM 4.2 mmol/L (3.5-5.1); SGOT/AST 12 IU/L (3-35); SGPT/ALT 21 U/L (12-78); SODIUM 140 mmol/L (136-145)
[2019-07-07 21:28] LABS: BILIRUBIN NEGATIVE (NEGATIVE); BLOOD NEGATIVE (NEGATIVE); CLARITY CLOUDY (CLEAR); COLOR YELLOW (YELLOW); GLUCOSE NEGATIVE (NEGATIVE); KETONE NEGATIVE (NEGATIVE); LEUKO ESTERASE 1+ (NEGATIVE); NITRITE POSITIVE (NEGATIVE); PH 7.5 (5.0-9.0); UROBILINOGEN 0.2 E.U./dl (0.2-1.0)
[2019-07-07 21:36] LABS: BACTERIA 3+; EPITHELIAL CELLS 0-2; RBC 0-2 rbc/hpf (0-2); WBC 0-2 wbc/hpf (0-5)
[2019-07-07] MEDS ORDERED: CIPRO500 MG PO (21:42)
== END 2019-07-07 23:49 | disposition home or self-care (01) ==
LOC: ED 20:23
PROVIDERS: Physician Assistant
DX: N39.0 Urinary tract infection, site not specified (principal); K59.00 Constipation, unspecified; F17.200 Nicotine dependence, unspecified, uncomplicated; Z79.899 Other long term (current) drug therapy; Z88.2 Allergy status to sulfonamides; Z87.442 Personal history of urinary calculi; Z98.890 Other specified postprocedural states; Z90.49 Acquired absence of other specified parts of digestive tract; Z98.51 Tubal ligation status; Z90.710 Acquired absence of both cervix and uterus

== ENCOUNTER → 2019-07-09 | Day surgery (SDC) | payer OTHER ==
[~2019-07-09] VITALS: Ht 165.1 cm; Wt 126.6 kg
[~2019-07-09] MED LIST changes: +CIPRO500 MG PO
--- NOTE | ~2019-07-09 | O ---
[place], [place] OPERATIVE NOTE NAME: GERALDINE LAYNE [facility] #: [id number] UNIT #: [id number] ROOM: DOCTOR: [facility] BIRTHDATE: [birth year] DOS: 07/09/2019 GASTROENDOSCOPIC REPORT INDICATIONS: A 44-year-old patient who has presented to the office yesterday with ambiguous abdominal pain quite distressed. She is tearful and we have been concerned due to the fact that she has had several visits to different emergency rooms of the area. The very last one in 07/06/2019 is "I am looking right now with access into the computer this afternoon. Findings, she is having a heavy gram-negative bacilli in her urine with sensitivity to multiple antibiotics except penicillin product and ciprofloxacin and levofloxacin, but she is sensitive to Bactrim. Unfortunately, she is also allergic to Bactrim. and sulfa category are out and she is to be receiving antibiotic for this purpose as well. Other urine culture again was reassessed, again showing heavy gram-negative bacillus. So this was the confirmed issue on 07/09/2019, after her urine was assessed. CBC differential has been taken from the Emergency Room multiple times. White blood cell remains 6, H and H of 12 and 14. Lactic acid has been unremarkable. Comprehensive metabolic panel has been unremarkable. Lipase normal. PROCEDURE: Today's procedure part of investigation is panendoscopy and colonoscopy. PREMEDICATION: Propofol. SCOPE: Olympus forward-viewing gastroscope Q10 video. REPORT: After putting the patient in left lateral position and application of lubricant to the scope, the scope was introduced. Thereafter, under direct visualization, advanced through the length of esophagus without difficulty. Base of the esophagus was approached. Gastric pouch was entered. Gastritis seen. Duodenal bulb, second, third part consistent with duodenitis photographed. Multiple antral erosions and evidence of gastritis was noticed, photographed, biopsies obtained. The patient extubated, tolerated the procedure well. IMPRESSION: Multi erosions in the gastric pouch and duodenitis. PLAN AND DISCUSSION: We will treat this concern with Protonix 40 mg daily. Furthermore, we are going to proceed with colonoscopy due to the ambiguity of this intense abdominal pain that she is searching for answer hospital to hospital. PROCEDURE: Today's procedure part of investigation is colonoscopy. PREMEDICATION: Propofol. SCOPE: Olympus forward-viewing colonoscope 10L video. REPORT: After putting the patient in left lateral position and application of [place], [place] OPERATIVE NOTE NAME: GERALDINE LAYNE UNIT #: [id number] ROOM: DOCTOR: YANCI NI,VLADIMIR BIRTHDATE: [birth year] lubricant to the scope, the scope was introduced. Thereafter, under direct visualization, advanced through the length of colon without difficulty. As I approached the above cecum, there is retained stool, however, air was suctioned out gradually. Scope was withdrawn back to the hepatic flexure. Sessile polypoid lesion was snare polypectomized. The patient extubated, tolerated the procedure well. IMPRESSION: Colonic polyp at hepatic flexure, status post snare polypectomy. PLAN AND DISCUSSION: Minimal retained stool in cecum was identified. Photographic series has been obtained. Therefore, colonic findings do not contribute to [id number] abdominal pain based on these findings. Thank you very much indeed. Therefore, most likely the cause of her ambiguous abdominal pain at this time has to be contributed to gram-negative bacilli, heavy growth and her search in multiple hospitals Emergency Room eventually led to this diagnosis to confirmation in the name of bacteria E. coli and Morganella morgagni greater than 100,000 this afternoon. Thank you very much, this we have to treat with ceftriaxone since she is allergic to all other available choices. We will see if that is available in [facility] , if not then she has to be admitted for Rocephin therapy. VLADIMIR PETE MD CM:OPRECORD:OPERATIVE NOTE 1633 05 VLADIMIR PETE MD 07/09/19 170 interface
[2019-07-09 12:59] VITALS: BP 111/72
[2019-07-09 16:20] VITALS: BP 99/59
[2019-07-09 16:33] VITALS: BP 104/61
[2019-07-09 16:50] VITALS: BP 111/68
== END | disposition home or self-care (01) ==
LOC: SDC 09:08
DX: D12.3 Benign neoplasm of transverse colon (principal); K29.50 Unspecified chronic gastritis without bleeding; J45.909 Unspecified asthma, uncomplicated; K21.0 Gastro-esophageal reflux disease with esophagitis; F41.9 Anxiety disorder, unspecified; F32.9 Major depressive disorder, single episode, unspecified; M19.90 Unspecified osteoarthritis, unspecified site; E66.01 Morbid (severe) obesity due to excess calories; Z68.42 Body mass index [BMI] 45.0-49.9, adult; F17.210 Nicotine dependence, cigarettes, uncomplicated; Z79.84 Long term (current) use of oral hypoglycemic drugs; Z90.710 Acquired absence of both cervix and uterus; Z98.890 Other specified postprocedural states; Z79.899 Other long term (current) drug therapy; Z88.8 Allergy status to other drugs, medicaments and biological substances; Z98.51 Tubal ligation status; Z90.49 Acquired absence of other specified parts of digestive tract; Z83.3 Family history of diabetes mellitus; Z82.49 Family history of ischemic heart disease and other diseases of the circulatory system; Z80.8 Family history of malignant neoplasm of other organs or systems

== ENCOUNTER 2021-08-19 14:49 | Emergency (ER) | payer OTHER ==
[~2021-08-19] VITALS: Ht 165.1 cm; Wt 117.9 kg
[2021-08-19 15:10] VITALS: BP 145/89
[2021-08-19] MEDS ORDERED: VIBRAMYCIN100 MG PO (15:34)
== END 2021-08-19 16:11 | disposition home or self-care (01) ==
LOC: ED 14:49
DX: R51.9 Headache, unspecified (principal); L98.9 Disorder of the skin and subcutaneous tissue, unspecified; Z87.891 Personal history of nicotine dependence; Z88.1 Allergy status to other antibiotic agents; Z88.6 Allergy status to analgesic agent; Z79.899 Other long term (current) drug therapy

== ENCOUNTER 2021-10-14 19:38 | Emergency (ER) | payer OTHER ==
[~2021-10-14] VITALS: Ht 165.1 cm; Wt 122.5 kg
[~2021-10-14 19:38] MED LIST changes: +VIBRAMYCIN100 MG PO
[2021-10-14 20:14] LABS: BASO % 0.5 % (0.0-1.0); EOS # 0.2 10*3/uL (0.0-0.4); EOS % 2.9 % (1.0-4.0); HEMATOCRIT 37.5 % (37.0-47.0); LYMPH % 39.6 % (27.0-41.0); MEAN CELL VOLUME 87.8 fl (81.0-99.0); MEAN CORPUSCULAR HGB 28.6 pg (27.0-31.0); MEAN CORPUSCULAR HGB CONC 32.5 g/dl (33.0-37.0); MEAN PLATELET VOLUME 9.8 fl (9.6-12.3); MONO # 0.7 10*3/uL (0.1-1.0); MONO % 8.8 % (3.0-9.0); NEUT # 3.6 10*3/uL (2.3-7.9); NEUT % 48.1 % (47.0-73.0); PLATELET COUNT AUTOMATED 312 10*3/uL (130-400); RED BLOOD COUNT 4.27 10*6/uL (4.10-5.10); RED CELL DISTRI WIDTH 13.2 % (0-14.5); WHITE BLOOD COUNT 7.5 10*3/uL (4.8-10.8)
[2021-10-14 20:30] LABS: ALBUMIN 3.5 gm/dl (3.1-4.5); ALKALINE PHOSPHATASE 116 U/L (45-117); BUN 12 mg/dl (7-24); CHLORIDE 109 mmol/L (98-107); CREATININE 0.71 mg/dL (0.55-1.02); POTASSIUM 3.6 mmol/L (3.5-5.1); SGOT/AST 21 IU/L (3-35); SGPT/ALT 38 U/L (12-78); SODIUM 139 mmol/L (136-145); TOTAL PROTEIN 7.7 gm/dL (6.4-8.2)
[2021-10-14 20:31] LABS: ETHYL ALCOHOL < 3.0 mg/dl (<3)
[2021-10-14 22:27] LABS: URINE AMPHETAMINES > 1000 (1000ng/ml); URINE BARBITURATES < 200 (200ng/ml); URINE BENZODIAZEPINES < 200 (200ng/ml); URINE CANNABINOIDS (THC) > 50 (50ng/ml); URINE COCAINE > 300 (300ng/ml); URINE METHADONE < 300 (300ng/ml); URINE OPIATES < 300 (300ng/ml); URINE PHENCYCLIDINE < 25 (25ng/ml)
[2021-10-14 23:16] VITALS: BP 138/72
== END 2021-10-15 01:34 | disposition home or self-care (01) ==
LOC: ED 19:38
PROVIDERS: Physician Assistant
DX: F41.9 Anxiety disorder, unspecified (principal); F15.129 Other stimulant abuse with intoxication, unspecified; F17.200 Nicotine dependence, unspecified, uncomplicated; Z88.1 Allergy status to other antibiotic agents; Z88.8 Allergy status to other drugs, medicaments and biological substances

== ENCOUNTER 2022-08-01 21:36 | Emergency (ER) | payer OTHER, MEDICAID ==
[~2022-08-01] VITALS: Ht 165.1 cm; Wt 122.5 kg
[2022-08-01 22:05] VITALS: BP 129/82
[2022-08-01] MEDS ORDERED: NAPROSYN500 MG PO (22:13)
[2022-08-01] MEDS ORDERED: CYCLOBENZAPRINE5 M3 PO (22:13)
[2022-08-01] MEDS ORDERED: MEDROL DOSEPAK4 MG PO (22:13)
== END 2022-08-01 23:37 | disposition home or self-care (01) ==
LOC: ED 21:36
DX: M54.12 Radiculopathy, cervical region (principal); Z91.048 Other nonmedicinal substance allergy status; Z88.2 Allergy status to sulfonamides; Z88.6 Allergy status to analgesic agent; Z98.890 Other specified postprocedural states; Z90.49 Acquired absence of other specified parts of digestive tract; Z90.710 Acquired absence of both cervix and uterus; Z98.51 Tubal ligation status; Z87.891 Personal history of nicotine dependence

== ENCOUNTER 2024-07-18 20:31 | Emergency (ER) | payer OTHER ==
[~2024-07-18] VITALS: Ht 165.1 cm; Wt 113.4 kg
[~2024-07-18 20:31] MED LIST changes: +CYCLOBENZAPRINE5 M3 PO
[2024-07-18 20:38] VITALS: BP 142/93
[2024-07-18] MEDS ORDERED: Lidocaine Hydrochloride 2 ML AMP SC ONE (20:45)
== END 2024-07-18 21:44 | disposition home or self-care (01) ==
LOC: ED 20:31
DX: S61.011A Laceration without foreign body of right thumb without damage to nail, initial encounter (principal); J45.909 Unspecified asthma, uncomplicated; M19.90 Unspecified osteoarthritis, unspecified site; F31.9 Bipolar disorder, unspecified; Z87.442 Personal history of urinary calculi; F17.200 Nicotine dependence, unspecified, uncomplicated; Z91.048 Other nonmedicinal substance allergy status; Z88.2 Allergy status to sulfonamides; Z88.6 Allergy status to analgesic agent; Z88.8 Allergy status to other drugs, medicaments and biological substances; Z90.49 Acquired absence of other specified parts of digestive tract; Z90.710 Acquired absence of both cervix and uterus; Z98.51 Tubal ligation status; Z98.890 Other specified postprocedural states; W25.XXXA Contact with sharp glass, initial encounter; Y93.89 Activity, other specified; Y92.009 Unspecified place in unspecified non-institutional (private) residence as the place of occurrence of the external cause; Y99.8 Other external cause status

== ENCOUNTER → 2024-07-28 | Outpatient (CLI) | payer OTHER ==
[2024-07-28 16:42] LABS: BASO % 0.3 % (0.0-1.0); EOS # 0.1 10*3/uL (0.0-0.4); LYMPH % 29.9 % (27.0-41.0); MEAN CORPUSCULAR HGB 27.4 pg (27.0-31.0); MEAN CORPUSCULAR HGB CONC 31.8 g/dl (33.0-37.0); MEAN PLATELET VOLUME 9.6 fl (9.6-12.3); MONO # 0.4 10*3/uL (0.1-1.0); MONO % 5.4 % (3.0-9.0); NEUT # 4.1 10*3/uL (2.3-7.9); NEUT % 62.2 % (47.0-73.0); PLATELET COUNT AUTOMATED 299 10*3/uL (130-400); RED BLOOD COUNT 4.42 10*6/uL (4.10-5.10); RED CELL DISTRI WIDTH 13.3 % (0-14.5); RETICULOCYTE % 0.98 % (0.50-2.50); WHITE BLOOD COUNT 6.7 10*3/uL (4.8-10.8)
[2024-07-28 17:04] LABS: BILIRUBIN Negative (Negative); BLOOD Negative (Negative); CLARITY Cloudy (Clear); COLOR Dark Yellow (Yellow); GLUCOSE Negative (Negative); KETONE Trace (Negative); LEUKO ESTERASE Negative (Negative); NITRITE Negative (Negative); PH 5.5 (4.5-8.0); SPECIFIC GRAVITY >= 1.030 (1.001-1.030)
[2024-07-28 17:08] LABS: ALKALINE PHOSPHATASE 105 U/L (46-116); BUN 11 mg/dl (9-23); CHLORIDE 106 mmol/L (98-107); CHOLESTEROL 159 mg/dL (<200); GAMMA GLUTAMYL TRANSPEPTIDASE 26 U/L (0-73); LDL CHOLESTEROL 84 mg/dL (9-159); POTASSIUM 3.7 mmol/L (3.4-5.1); SGPT/ALT 13 U/L (5-49); T3 UPTAKE 33.8 % (22.4-36.7); THYROXINE (T4) TOTAL 6.4 ug/dl (4.5-10.9); TOTAL PROTEIN 6.7 gm/dL (6.0-8.0); TRIGLYCERIDES 76 mg/dl (<150); URIC ACID 4.4 mg/dL (3.1-7.8)
[2024-07-28 17:41] LABS: WBC 0-2 wbc/hpf (0-5)
[2024-07-28 17:42] LABS: BACTERIA 1+; EPITHELIAL CELLS 51-100; HYALINE CAST 0-2; MUCOUS 1+
[2024-07-28 18:27] LABS: VITAMIN D, 25-HYDROXY 30.4 ng/mL (30-100)
[2024-07-29 14:09] LABS: ANTI-DSDNA ANTIBODIES 1 IU/mL (0-9)
== END | disposition home or self-care (01) ==
LOC: LAB 16:06
PROVIDERS: ATTEND Family Medicine
DX: M47.817 Spondylosis without myelopathy or radiculopathy, lumbosacral region (principal); R79.89 Other specified abnormal findings of blood chemistry; R53.83 Other fatigue; E55.9 Vitamin D deficiency, unspecified; E78.5 Hyperlipidemia, unspecified; M48.02 Spinal stenosis, cervical region; M47.812 Spondylosis without myelopathy or radiculopathy, cervical region; Z90.49 Acquired absence of other specified parts of digestive tract

== ENCOUNTER 2025-06-25 21:52 | Emergency (ER) | payer OTHER ==
[~2025-06-25] VITALS: Ht 165.1 cm; Wt 117.1 kg
[2025-06-25 22:36] LABS: BASO # 0.0 10*3/uL (0.0-0.1); BASO % 0.4 % (0.0-1.0); EOS # 0.1 10*3/uL (0.0-0.4); EOS % 1.9 % (1.0-4.0); MEAN CELL VOLUME 86.8 fl (81.0-99.0); MEAN CORPUSCULAR HGB 27.8 pg (27.0-31.0); MEAN PLATELET VOLUME 10.0 fl (9.6-12.3); MONO # 0.4 10*3/uL (0.1-1.0); MONO % 5.6 % (3.0-9.0); NEUT # 3.7 10*3/uL (2.3-7.9); NEUT % 52.5 % (47.0-73.0); NUCLEATED RED BLOOD CELL 0.0 % (0.0-0.0); NUCLEATED RED BLOOD CELL 0.0 10*3/uL (0.0-0.0); PLATELET COUNT AUTOMATED 298 10*3/uL (130-400); RED CELL DISTRI WIDTH 13.4 % (0-14.5)
[2025-06-25 22:47] LABS: BUN 11 mg/dl (9-23)
[2025-06-25 23:06] LABS: BILIRUBIN Negative (Negative); BLOOD Negative (Negative); CLARITY Clear (Clear); COLOR Yellow (Yellow); KETONE Trace (Negative); LEUKO ESTERASE Trace (Negative); NITRITE Negative (Negative); PH 7.0 (4.5-8.0); SPECIFIC GRAVITY 1.020 (1.001-1.030); UROBILINOGEN 1.0 E.U./dl (0.0-1.0)
[2025-06-25 23:13] LABS: BACTERIA TRACE; EPITHELIAL CELLS 16-20; MUCOUS 1+; RBC 0-2 rbc/hpf (0-2)
[2025-06-25 23:14] LABS: URINE AMPHETAMINES Negative (1000ng/ml); URINE BARBITURATES Negative (200ng/ml); URINE BENZODIAZEPINES Negative (200ng/ml); URINE CANNABINOIDS (THC) Positive (50ng/ml); URINE COCAINE Negative (300ng/ml); URINE METHADONE Negative (300ng/ml); URINE OPIATES Negative (300ng/ml); URINE PHENCYCLIDINE Negative (25ng/ml)
[2025-06-26 02:54] VITALS: BP 116/69
== END 2025-06-26 03:25 | disposition home or self-care (01) ==
LOC: ED 21:52
PROVIDERS: Internal Medicine
DX: N18.31 Chronic kidney disease, stage 3a (principal); F12.90 Cannabis use, unspecified, uncomplicated; R10.9 Unspecified abdominal pain; R40.4 Transient alteration of awareness; F17.200 Nicotine dependence, unspecified, uncomplicated; Z91.048 Other nonmedicinal substance allergy status; Z88.1 Allergy status to other antibiotic agents; Z88.2 Allergy status to sulfonamides; Z88.6 Allergy status to analgesic agent; Z98.890 Other specified postprocedural states; Z90.49 Acquired absence of other specified parts of digestive tract; Z90.710 Acquired absence of both cervix and uterus

== ENCOUNTER 2025-06-28 02:10 | Emergency (ER) | payer OTHER ==
[~2025-06-28] VITALS: Ht 165.1 cm; Wt 113.4 kg
[2025-06-28] MEDS ORDERED: SODIUM CHLORIDE 0.9% 1,000 ML IV ONE (02:30)
[2025-06-28] MEDS ORDERED: Ondansetron Hydrochloride 4 MG/2 ML VIAL IV ONE (02:30)
[2025-06-28 02:41] LABS: BASO # 0.0 10*3/uL (0.0-0.1); BASO % 0.6 % (0.0-1.0); EOS # 0.2 10*3/uL (0.0-0.4); EOS % 2.6 % (1.0-4.0); MEAN CELL VOLUME 87.2 fl (81.0-99.0); MEAN CORPUSCULAR HGB 27.9 pg (27.0-31.0); MEAN PLATELET VOLUME 9.7 fl (9.6-12.3); MONO # 0.4 10*3/uL (0.1-1.0); MONO % 6.6 % (3.0-9.0); NEUT # 3.0 10*3/uL (2.3-7.9); NEUT % 46.3 % (47.0-73.0); NUCLEATED RED BLOOD CELL 0.0 % (0.0-0.0); NUCLEATED RED BLOOD CELL 0.0 10*3/uL (0.0-0.0); PLATELET COUNT AUTOMATED 302 10*3/uL (130-400); RED CELL DISTRI WIDTH 13.2 % (0-14.5)
[2025-06-28 03:21] LABS: BUN 15 mg/dl (9-23); SGPT/ALT 28 U/L (5-49)
[2025-06-28 03:40] VITALS: BP 121/57
[2025-06-28] MEDS ORDERED: Ondansetron4 MG PO (03:44)
== END 2025-06-28 03:48 | disposition home or self-care (01) ==
LOC: ED 02:10
PROVIDERS: Internal Medicine
DX: R11.2 Nausea with vomiting, unspecified (principal); R53.1 Weakness; F17.210 Nicotine dependence, cigarettes, uncomplicated; Z98.51 Tubal ligation status; Z98.890 Other specified postprocedural states; Z90.49 Acquired absence of other specified parts of digestive tract; Z90.710 Acquired absence of both cervix and uterus

== ENCOUNTER → 2025-07-20 | Outpatient (CLI) | payer OTHER ==
[~2025-07-20] MED LIST changes: +Ondansetron4 MG PO
== END | disposition home or self-care (01) ==
LOC: RAD 15:11
PROVIDERS: ATTEND Family Medicine
DX: M25.572 Pain in left ankle and joints of left foot (principal)

== ENCOUNTER 2025-07-26 18:20 | Emergency (ER) | payer OTHER ==
[~2025-07-26] VITALS: Wt 117.9 kg
[2025-07-26] MEDS ORDERED: Dexamethasone Sodium Phospha 20 MG/5 ML VIAL IV ONE (19:15)
[2025-07-26] MEDS ORDERED: diphenhydrAMINE hydrochloride 50 MG/ML VIAL IV ONE (19:15)
[2025-07-26 19:38] LABS: BASO # 0.0 10*3/uL (0.0-0.1); BASO % 0.4 % (0.0-1.0); EOS # 0.1 10*3/uL (0.0-0.4); EOS % 1.8 % (1.0-4.0); MEAN CELL VOLUME 87.5 fl (81.0-99.0); MEAN CORPUSCULAR HGB 27.7 pg (27.0-31.0); MEAN PLATELET VOLUME 9.5 fl (9.6-12.3); MONO # 0.6 10*3/uL (0.1-1.0); MONO % 7.8 % (3.0-9.0); NEUT # 4.4 10*3/uL (2.3-7.9); NEUT % 60.6 % (47.0-73.0); NUCLEATED RED BLOOD CELL 0.0 % (0.0-0.0); NUCLEATED RED BLOOD CELL 0.0 10*3/uL (0.0-0.0); PLATELET COUNT AUTOMATED 301 10*3/uL (130-400); RED CELL DISTRI WIDTH 13.2 % (0-14.5)
[2025-07-26 20:07] LABS: ACT PARTIAL THROMBO TIME 27.6 SECONDS (20.0-32.1)
[2025-07-26 20:42] LABS: BUN 11 mg/dl (9-23)
[2025-07-26 21:31] VITALS: BP 109/74
== END 2025-07-26 21:26 | disposition home or self-care (01) ==
LOC: ED 18:20
PROVIDERS: Nurse Practitioner Family
DX: G43.909 Migraine, unspecified, not intractable, without status migrainosus (principal); R07.2 Precordial pain; R20.2 Paresthesia of skin; R06.2 Wheezing; F17.200 Nicotine dependence, unspecified, uncomplicated; Z91.048 Other nonmedicinal substance allergy status; Z88.1 Allergy status to other antibiotic agents; Z88.2 Allergy status to sulfonamides; Z88.6 Allergy status to analgesic agent; Z98.890 Other specified postprocedural states; Z90.49 Acquired absence of other specified parts of digestive tract; Z90.710 Acquired absence of both cervix and uterus

== ENCOUNTER 2025-07-30 23:01 | Emergency (ER) | payer OTHER ==
[~2025-07-30] VITALS: Ht 165.1 cm; Wt 117.9 kg
[2025-07-30 23:08] VITALS: BP 152/84
[2025-07-30] MEDS ORDERED: ALBUTEROL SULFATE HF (23:09)
[2025-07-30] MEDS ORDERED: PANTOPRAZOLE SO40 MG PO (23:09)
[2025-07-30] MEDS ORDERED: diphenhydrAMINE hydrochloride 50 MG/ML VIAL IV ONE (23:10)
[2025-07-30] MEDS ORDERED: Metoclopramide Hydrochloride 10 MG/2 ML VIAL IV ONE (23:10)
[2025-07-30] MEDS ORDERED: Albuterol Sulf/Ipratropium 3 ML VIAL NEB ONE (23:15)
[2025-07-30 23:27] LABS: BILIRUBIN Negative (Negative); BLOOD Negative (Negative); CLARITY Clear (Clear); COLOR Yellow (Yellow); KETONE Trace (Negative); LEUKO ESTERASE Negative (Negative); NITRITE Negative (Negative); PH 6.0 (4.5-8.0); SPECIFIC GRAVITY 1.025 (1.001-1.030); UROBILINOGEN 1.0 E.U./dl (0.0-1.0)
[2025-07-30 23:34] LABS: URINE AMPHETAMINES Negative (1000ng/ml); URINE BARBITURATES Negative (200ng/ml); URINE BENZODIAZEPINES Negative (200ng/ml); URINE CANNABINOIDS (THC) Positive (50ng/ml); URINE COCAINE Negative (300ng/ml); URINE METHADONE Negative (300ng/ml); URINE OPIATES Negative (300ng/ml); URINE PHENCYCLIDINE Negative (25ng/ml)
[2025-07-30 23:40] LABS: BASO # 0.0 10*3/uL (0.0-0.1); BASO % 0.1 % (0.0-1.0); EOS # 0.0 10*3/uL (0.0-0.4); EOS % 0.0 % (1.0-4.0); MEAN CELL VOLUME 86.0 fl (81.0-99.0); MEAN CORPUSCULAR HGB 27.9 pg (27.0-31.0); MEAN PLATELET VOLUME 9.8 fl (9.6-12.3); MONO # 0.7 10*3/uL (0.1-1.0); MONO % 6.1 % (3.0-9.0); NEUT # 9.3 10*3/uL (2.3-7.9); NEUT % 77.8 % (47.0-73.0); NUCLEATED RED BLOOD CELL 0.0 % (0.0-0.0); NUCLEATED RED BLOOD CELL 0.0 10*3/uL (0.0-0.0); PLATELET COUNT AUTOMATED 328 10*3/uL (130-400); RED CELL DISTRI WIDTH 13.3 % (0-14.5)
[2025-07-30 23:51] LABS: ACT PARTIAL THROMBO TIME 25.0 SECONDS (20.0-32.1)
[2025-07-30 23:59] LABS: BUN 13 mg/dl (9-23); ETHYL ALCOHOL 3.3 mg/dl (<3)
[2025-07-31 00:10] LABS: EPITHELIAL CELLS 21-30; WBC 0-2 wbc/hpf (0-5)
[2025-07-31 00:11] LABS: BACTERIA TRACE; RBC 0-2 rbc/hpf (0-2)
[2025-07-31] MEDS ORDERED: PREDNISONE50 MG PO (02:46)
== END 2025-07-31 03:00 | disposition home or self-care (01) ==
LOC: ED 23:01
PROVIDERS: Internal Medicine
DX: J44.9 Chronic obstructive pulmonary disease, unspecified (principal); Z77.128 Contact with and (suspected) exposure to other hazards in the physical environment; F17.200 Nicotine dependence, unspecified, uncomplicated; Z91.048 Other nonmedicinal substance allergy status; Z88.1 Allergy status to other antibiotic agents; Z88.2 Allergy status to sulfonamides; Z88.6 Allergy status to analgesic agent; Z79.899 Other long term (current) drug therapy; Z98.890 Other specified postprocedural states; Z90.49 Acquired absence of other specified parts of digestive tract; Z90.710 Acquired absence of both cervix and uterus

== ENCOUNTER 2025-08-03 23:00 | Emergency (ER) | payer OTHER ==
[~2025-08-03] VITALS: Ht 165.1 cm; Wt 117.9 kg
[~2025-08-03 23:00] MED LIST changes: +ALBUTEROL SULFATE HF; +PANTOPRAZOLE SO40 MG PO; +PREDNISONE50 MG PO
[2025-08-03 23:22] VITALS: BP 119/65
== END 2025-08-04 01:41 | disposition home or self-care (01) ==
LOC: ED 23:00
DX: S00.83XA Contusion of other part of head, initial encounter (principal); R42 Dizziness and giddiness; Z91.048 Other nonmedicinal substance allergy status; Z88.1 Allergy status to other antibiotic agents; Z88.2 Allergy status to sulfonamides; Z88.6 Allergy status to analgesic agent; Z79.899 Other long term (current) drug therapy; Z98.890 Other specified postprocedural states; Z90.49 Acquired absence of other specified parts of digestive tract; Z90.710 Acquired absence of both cervix and uterus; Z87.891 Personal history of nicotine dependence; Y04.2XXA Assault by strike against or bumped into by another person, initial encounter; Y93.89 Activity, other specified; Y92.89 Other specified places as the place of occurrence of the external cause; Y99.8 Other external cause status

== ENCOUNTER → 2025-08-16 | Outpatient (CLI) | payer OTHER | END | disposition home or self-care (01) | LOC: CARD 13:59 | PROVIDERS: ATTEND Internal Medicine Cardiovascular Disease | DX: R07.89 Other chest pain (principal); Q24.8 Other specified congenital malformations of heart ==